=== PATIENT | female | born 1955 | race African-American/Black ===

== ENCOUNTER → 2020-08-23 10:11 | Outpatient (CLI) | payer MEDICARE, SELFPAY ==
--- NOTE | ~2020-08-23 | MM_ITS ---
EXAMINATION: MM screening [facility] BI w kehinde HISTORY: Screening mammogram TECHNIQUE: Craniocaudal and mediolateral oblique 3-D tomosynthesis images were obtained and synthetic 2-D images were generated. CAD analysis was submitted and interpreted. COMPARISON: No prior mammogram is available for comparison at this institution. BREAST PARENCHYMAL COMPOSITION: There are scattered areas of fibroglandular density. FINDINGS: Status post right partial mastectomy with surgical clips in the upper mid right breast and chronic associated scarring and retraction as well as volume loss of the right breast. There is a new approximately 1.7 cm area of ill-defined irregular density and pleomorphic calcificati ons in the upper outer quadrant of the right breast . Additional new microcalcifications are noted on the right. Diagnostic right mammogram and right breast ultrasound examination are recommended. There is no evidence of suspicious mass, calcification, or architectural distortion to suggest malign sandy in the left breast. There has been no suspicious interval change on the left. IMPRESSION: 1. New ill-defined irregular opacity with pleomorphic microcalcifications in the upper outer right br east and additional areas of new right breast microcalcifications 2. Diagnostic right mammogram and right breast ultrasound examination are recommended. BI-RADS Category 0: Incomplete: Needs additional imaging evaluation. Reviewed, dictated and finalized at location A. DER BEAM IMPRESSION: 1. New ill-defined irregular opacity with pleomorphic microcalcifications in th e upper outer right breast and additional areas of new right breast microcalcif ications 2. Diagnostic right mammogram and right breast ultrasound examination are recom mended. BI-RADS Category 0: Incomplete: Needs additional imaging evaluation.
== END ==
PROVIDERS: PCP Internal Medicine; Visit Provider Internal Medicine
DX: Z12.31 Encounter for screening mammogram for malignant neoplasm of breast (principal); R92.8 Other abnormal and inconclusive findings on diagnostic imaging of breast
CPT/HCPCS: 77063; 77067

== ENCOUNTER → 2020-10-07 09:02 | Outpatient (CLI) | payer MEDICARE, SELFPAY ==
--- NOTE | ~2020-10-07 | MMUS_ITS ---
EXAMINATION: MM diagnostic tyrone RT w kehinde, US breast RT limited HISTORY: Developing calcification and possible masses on screening mammogram, history of right breast cancer. TECHNIQUE: Additional 3-D tomosynthesis images of the right breast were performed and synthetic 2-D i mages were generated. Magnification views are also obtained. CAD analysis was submitted and interpret ed. High resolution limited right breast ultrasound was performed. COMPARISON: 08/23/2020, 07/09/2019, 09/17/2018, 08/28/2017 BREAST PARENCHYMAL COMPOSITION: There are scattered areas of fibroglandular density. FINDINGS: MAMMOGRAPHIC FINDINGS: There are three equal density irregular masses in the upper outer quadrant of the breast with associa gabino fine pleomorphic calcifications. One is at the 9:00 location 4 cm from the nipple and measures ap proximately 1 cm. The second is at the 10:00 location 4.5 cm from the nipple and measures approximate ly 1.6 cm. The third is at the 11:00 location 6 cm from the nipple and measures approximately 1.1 cm. There are changes of prior lumpectomy at the 12:00 location in the breast. Also noted is chronic joaquina cification in the skin of the breast at the 12:00 location near the nipple. ULTRASOUND: There is a 1.5 x 0.7 cm oval, parallel, hypoechoic mass with indistinct margins and internal calcific ation at the 11:00 location 7 cm from the nipple which demonstrates mixed posterior features and no i nternal vascularity. There is a 1.8 x 1.2 cm mass with similar sonographic features at the 11:00 loca tion 5 cm from the nipple. There is a 0.5 x 0.4 cm mass with similar sonographic features at the 10:0 0 location 4 cm from the nipple. Also noted is a 6 mm hypoechoic mass with calcification in the skin of the breast at the 12:00 location near the nipple corresponding to the chronic finding on mammogram . IMPRESSION: 1. Three suspicious right breast masses with associated pleomorphic calcification. 2. Ultrasound-guided biopsy is recommended. BI-RADS category 5, highly suggestive of malignancy. Reviewed, dictated and finalized at location A. IMPRESSION: 1. Three suspicious right breast masses with associated pleomorphic calcificati on. 2. Ultrasound-guided biopsy is recommended. BI-RADS category 5, highly suggestive of malignancy.
== END ==
PROVIDERS: PCP Internal Medicine; Visit Provider Surgery
DX: R92.0 Mammographic microcalcification found on diagnostic imaging of breast (principal); R92.8 Other abnormal and inconclusive findings on diagnostic imaging of breast
CPT/HCPCS: 76642; 77061; 77065; G0279

== ENCOUNTER → 2021-02-03 08:42 | Outpatient (CLI) | payer MEDICARE, SELFPAY ==
--- NOTE | ~2021-02-03 | MM_ITS ---
EXAMINATION: MM diagnostic tyrone RT w kehinde HISTORY: Follow-up from benign right breast biopsy, history of right breast cancer TECHNIQUE: Craniocaudal, mediolateral, and mediolateral oblique 3-D tomosynthesis images of the right breast were performed and synthetic 2-D images were generated. CAD analysis was submitted and interp reted. COMPARISON: 10/07/2020, 08/23/2020, 07/09/2019,09/17/2018 BREAST PARENCHYMAL COMPOSITION: There are scattered areas of fibroglandular density. FINDINGS: There has been interval biopsy of previously described masses and calcifications of the rig ht breast. Pathology report describes fat necrosis, a concordant finding. There is no new suspicious mass, calcification, or architectural distortion. There has been no suspicious interval change. IMPRESSION: 1. No mammographic evidence of malignancy. 2. Routine screening mammography is recommended, due August of 2021. BI-RADS Category 2: Benign finding(s). Reviewed, dictated and finalized at location A.
== END ==
PROVIDERS: PCP Internal Medicine; Visit Provider Surgery
DX: R92.8 Other abnormal and inconclusive findings on diagnostic imaging of breast (principal)
CPT/HCPCS: 77061; 77065; G0279

== ENCOUNTER → 2021-08-24 09:46 | Outpatient (CLI) | payer MEDICARE, SELFPAY ==
--- NOTE | ~2021-08-24 | MM_ITS ---
EXAMINATION: MM screening [facility] BI w kehinde HISTORY: Screening TECHNIQUE: Craniocaudal and mediolateral oblique 3-D tomosynthesis images were obtained and synthetic 2-D images were generated. CAD analysis was submitted and interpreted. COMPARISON: Comparison to multiple prior studies sequentially, with oldest reviewed study dated 07/09. BREAST PARENCHYMAL COMPOSITION: There are scattered areas of fibroglandular density. FINDINGS: There are surgical changes in the upper central right breast consistent with previous lumpe ctomy. There are clustered calcifications in this region which were previously biopsy-proven benign f at necrosis. There is no evidence of suspicious mass, calcification, or architectural distortion to s uggest malignancy in either breast. There has been no suspicious interval change. IMPRESSION: 1. No mammographic evidence of malignancy. 2. Recommend routine screening mammography in one year. BI-RADS Category 2: Benign finding(s). Reviewed, dictated and finalized at location A. INIST BENCH
== END ==
PROVIDERS: PCP Internal Medicine; Visit Provider Surgery
DX: Z12.31 Encounter for screening mammogram for malignant neoplasm of breast (principal)
CPT/HCPCS: 77063; 77067

== ENCOUNTER → 2022-08-30 10:58 | Outpatient (CLI) | payer MEDICARE, SELFPAY ==
--- NOTE | ~2022-08-30 | MM_ITS ---
EXAMINATION: MM screening tyrone BI w kehinde HISTORY: Screening mammogram TECHNIQUE: Craniocaudal and mediolateral oblique 3-D tomosynthesis images were obtained and synthetic 2-D images were generated. CAD analysis was submitted and interpreted. COMPARISON: 08/24/2021 bilateral screening mammogram 02/03/2022 10/07/2020 right diagnostic mammogram and limited right breast ultrasound examination diagnostic right mammogram BREAST PARENCHYMAL COMPOSITION: There are scattered areas of fibroglandular density. FINDINGS: Status post right partial mastectomy changes and multiple right breast biopsies, stable sin ce 08/24/2021 There is no evidence of suspicious mass, calcification, or architectural distortion to suggest malign sandy in either breast. There has been no suspicious interval change. IMPRESSION: 1. No status post right partial mastectomy for breast cancer; no mammographic evidence of malignancy. 2. Recommend routine screening mammography in one year. BI-RADS Category 2: Benign finding(s). Reviewed, dictated and finalized at location A. IMPRESSION: 1. No status post right partial mastectomy for breast cancer; no mammographic e vidence of malignancy. 2. Recommend routine screening mammography in one year. BI-RADS Category 2: Benign finding(s).
== END ==
PROVIDERS: PCP Internal Medicine; Visit Provider Internal Medicine
DX: Z12.31 Encounter for screening mammogram for malignant neoplasm of breast (principal)
CPT/HCPCS: 77063; 77067

== ENCOUNTER → 2022-09-05 09:10 | Outpatient (CLI) | payer MEDICARE, SELFPAY ==
--- NOTE | ~2022-09-05 | DEXA_ITS ---
Bone Density Report Name: AKI FAM Age: 67 Sex: Female Ethnicity: Black Date of : 1955 Indication: postmenopausal; screening for osteoporosis; height loss; hysterectomy; Referring Provider: KWAKU, DANIELLE Study: Bone densitometry was performed. Exam Date: September 05, 2022 Accession number: [id number] Bone Density: Region BMD T-score Z-score Classification AP Spine (L1-L4) 1.221 1.6 2.8 Normal Femoral Neck (Left) 0.890 0.4 0.9 Normal Total Hip (Left) 1.182 2.0 2.0 Normal Femoral Neck (Right) 0.991 1.3 1.7 Normal Total Hip (Right) 1.156 1.8 1.9 Normal Total Hip Mean 1.169 1.9 2.0 Normal World Health Organization criteria for BMD impression classify patients as: Normal (T-score at or above -1.0), Osteopenia (T-score between -1.0 and -2.5), or Osteoporosis (T-score at or below -2.5). 10-year Fracture Risk: FRAX not reported because: All T-scores for Spine Total, Hip Total, Femoral Neck at or above -1.0 Clinical Information Provided by Patient: Has used the following medications: Vitamin D Has the following medical conditions: Hysterectomy Patient maximum height was 66 Menopause Age: 46 Does not regularly consume dairy products Drinks caffeinated beverages Onset of menses at age 14 Number of children 3 Impression: The patient has normal bone mass. Discussion: BONE DENSITY IS ABOVE THE MINIMUM DESIRABLE LEVEL AT ALL SKELETAL SITES TESTED. This patient?s bone mineral density is above the minimum desirable level (T-score -1.0 or better) at all sites measured. The patient should follow a healthful lifestyle (good nutrition with adequate calcium and vitamin D, and appropriate weight-bearing exercise). Follow-Up: Consider repeating this study in 5 years or sooner if there is some new clinical indication. Reported by: FARHAD on 09/05/2022 9:43:00 AM. Reviewed, dictated and finalized at location ASergei WILLS
== END ==
PROVIDERS: PCP Internal Medicine; Visit Provider Internal Medicine
DX: Z78.0 Asymptomatic menopausal state (principal)
CPT/HCPCS: 77080

== ENCOUNTER 2023-11-28 14:47 | Outpatient (CLI) | payer MEDICARE, SELFPAY ==
--- NOTE | ~2023-11-28 | MM_ITS ---
EXAMINATION: MM screening [facility] BI w kehinde HISTORY: Screening TECHNIQUE: Craniocaudal and mediolateral oblique 3-D tomosynthesis images were obtained and synthetic 2-D images were generated. CAD analysis was submitted and interpreted. COMPARISON: Comparison to multiple prior studies sequentially, with oldest reviewed study dated 07/09. BREAST PARENCHYMAL COMPOSITION: Not dense: There are scattered areas of fibroglandular density. FINDINGS: There is evidence of fat necrosis in the upper central aspect of the right breast, consiste nt with previous lumpectomy for breast cancer. There is no evidence of suspicious mass, calcification , or architectural distortion to suggest malignancy in either breast. There has been no suspicious in terval change. IMPRESSION: 1. No mammographic evidence of malignancy. 2. Recommend routine screening mammography in one year. BI-RADS Category 2: Benign finding(s). Reviewed, dictated and finalized at location B.
== END 2023-11-28 14:48 ==
PROVIDERS: PCP Internal Medicine; Visit Provider Internal Medicine
DX: Z12.31 Encounter for screening mammogram for malignant neoplasm of breast (principal)
CPT/HCPCS: 77063; 77067